=== PATIENT | female | born 1995 | race Caucasian/White ===

== ENCOUNTER → 2024-10-01 15:16 | Outpatient (REF) | payer OTHER, SELFPAY | LOC: PNTC 15:16 | PROVIDERS: ATTENDING PHYSICIAN Obstetrics & Gynecology | DX: O99.210 Obesity complicating pregnancy, unspecified trimester (principal); O34.219 Maternal care for unspecified type scar from previous cesarean delivery | CPT/HCPCS: 76801; 76813 ==

== ENCOUNTER → 2024-10-20 07:55 | Outpatient (REF) | payer OTHER, SELFPAY | LOC: PNTC 07:55 | PROVIDERS: ATTENDING PHYSICIAN Obstetrics & Gynecology | DX: O99.210 Obesity complicating pregnancy, unspecified trimester (principal); O34.219 Maternal care for unspecified type scar from previous cesarean delivery | CPT/HCPCS: 76805 ==

== ENCOUNTER → 2024-11-17 16:17 | Outpatient (REF) | payer OTHER, SELFPAY | LOC: PNTC 16:17 | PROVIDERS: ATTENDING PHYSICIAN Obstetrics & Gynecology | DX: O99.210 Obesity complicating pregnancy, unspecified trimester (principal); O34.219 Maternal care for unspecified type scar from previous cesarean delivery; O43.219 Placenta accreta, unspecified trimester | CPT/HCPCS: 76811 ==

== ENCOUNTER → 2025-01-04 15:48 | Outpatient (REF) | payer OTHER, SELFPAY | LOC: PNTC 15:48 | PROVIDERS: ATTENDING PHYSICIAN Student in an Organized Health Care Education/Training Program | DX: O99.210 Obesity complicating pregnancy, unspecified trimester (principal); O34.211 Maternal care for low transverse scar from previous cesarean delivery; O43.219 Placenta accreta, unspecified trimester | CPT/HCPCS: 76816; 93976 ==

== ENCOUNTER → 2025-01-19 15:35 | Outpatient (REF) | payer OTHER, SELFPAY | LOC: PNTC 15:35 | PROVIDERS: ATTENDING PHYSICIAN Obstetrics & Gynecology | DX: Z36.2 Encounter for other antenatal screening follow-up (principal); Z36.3 Encounter for antenatal screening for malformations | CPT/HCPCS: 76815 ==

== ENCOUNTER → 2025-01-25 13:53 | Outpatient (REF) | payer OTHER, SELFPAY | LOC: PNTC 13:53 | PROVIDERS: ATTENDING PHYSICIAN Obstetrics & Gynecology | DX: O35.GXX0 Maternal care for other (suspected) fetal abnormality and damage, fetal upper extremities anomalies, not applicable or unspecified (principal) | CPT/HCPCS: 76815 ==

== ENCOUNTER 2025-02-13 14:35 | Observation (INO) | payer OTHER, SELFPAY ==
[2025-02-13 14:44] VITALS: BMI 33.7
[2025-02-13 15:39] LABS: Urine Albumin 1+ (Neg - Trace); Urine Bilirubin Negative (Negative); Urine Character Clear (Clear); Urine Color Yellow; Urine Glucose Negative (Negative); Urine Ketone Negative (Negative); Urine Leukocyte 1+ (Negative); Urine Nitrite Negative (Negative); Urine Occult Blood Negative (Negative); Urine Urobilinogen Negative (Neg - 1+)
[2025-02-13 16:07] LABS: Urine Bacteria Few (Negative); Urine Red Blood Cell 0-2 /HPF (0-2); Urine Squamous Cell >30 /LPF (Few)
[2025-02-13 16:30] VITALS: BP 125/59
== END 2025-02-13 16:54 | disposition home or self-care (01) ==
LOC: LDRP 14:35
PROVIDERS: ADMITTING PHYSICIAN Obstetrics & Gynecology
DX: O23.43 Unspecified infection of urinary tract in pregnancy, third trimester (principal); N39.0 Urinary tract infection, site not specified; M54.50 Low back pain, unspecified; R10.9 Unspecified abdominal pain; O99.213 Obesity complicating pregnancy, third trimester; Z3A.32 32 weeks gestation of pregnancy; G89.29 Other chronic pain; R39.15 Urgency of urination
CPT/HCPCS: 81003; 81015; 87086; G0378

== ENCOUNTER → 2025-02-16 16:52 | Outpatient (REF) | payer OTHER, SELFPAY | LOC: PNTC 16:52 | PROVIDERS: ATTENDING PHYSICIAN Obstetrics & Gynecology | DX: O99.210 Obesity complicating pregnancy, unspecified trimester (principal); O34.219 Maternal care for unspecified type scar from previous cesarean delivery | CPT/HCPCS: 76816 ==

== ENCOUNTER 2025-04-07 05:36 | Inpatient (IN) | payer OTHER, SELFPAY ==
[2025-04-07 05:40] VITALS: BMI 35.4
[2025-04-07 06:23] VITALS: BP 114/73
[2025-04-07 06:25] LABS: Hematocrit 34.5 % (37.0-47.0); Hemoglobin 11.6 g/dL (12.0-16.0); Mean Corp Hgb Conc. 33.6 g/dL (33.0-37.0); Mean Corpuscular Hgb 28.4 pg (27.0-31.0); Mean Corpuscular Volume 84.4 fL (81.0-99.0); Mean Platelet Volume 12.2 fL (7.4-10.4); Platelet Count 133 10^3/uL (130-400); Red Blood Cell Count 4.09 10^6/uL (4.20-5.40); Red Cell Dist. Width 14.6 % (11.5-14.5); White Blood Cell Count 11.5 10^3/uL (4.8-10.8)
[2025-04-07] MEDS: BICITRA 30 ML PO (07:11)
[2025-04-07] MEDS: TYLENOL 1000 MG PO (07:11)
[2025-04-07] MEDS: ANCEF 10 IV (07:12)
[2025-04-07] MEDS: TORADOL 15 MG IV ×2 (13:49→19:58)
--- NOTE | 2025-04-07 18:59 | OR.RPT ---
Addendum entered and electronically signed by Penelope Montes DO 04/07/25 19:35:
Procedure date: 04/07/25
Original Note:
Operative Report
Operative Report
Preop diagnosis: IUP @40.1, history of prior C/Sx1, history of hemorrhage with prior C/S
Postop diagnosis: same
Procedure: Repeat low transverse section
Surgeon: Jyoti
Anesthesia: Spinal, Dimas
QBL: 510mL
Findings: Patient given TXA prior to incision for history of hemorrhage, viable male born at 0808, Apgars 8/8, umbilical cord at hysterotomy, normal appearing uterus, bilateral fallopian tubes and ovaries, bladder adherent to lower uterine
segment, adhesions between rectus muscles.
Complications: none
Indications: Patient is a 30yo @40.1 who presents for schedule repeat section. She has a history of one prior section and desired repeat section. She has a history of a hemorrhage requiring a blood transfusion with her last
section. TXA was given prior to incision because of her history. Risks, benefits and alternatives discussed and consents were previously signed in the office.
Procedure: Patient was taken to the operating room where spinal anesthesia was administered and found to be adequate. 2g of Ancef were given for antibiotic prophylaxis. The abdomen was prepped with ChloraPrep. The patient was draped in the normal
sterile fashion. She was placed in the dorsal supine position with a left lateral tilt. A Pfannenstiel incision was made with a 10 blade and carried down to the fascia with a scalpel. Hemostasis achieved with Bovie. The fascia was incised and
dissected laterally with Rebollar scissors. The superior aspect of the fascia was grasped with Caridad clamps. The underlying rectus fascia was sharply dissected with Rebollar scissors. In a similar fashion the inferior aspect of the fascia was elevated with
Caridad clamps and the rectus muscle was dissected off with Rebollar scissors. The rectus muscles were down the midline to the level of the pubic symphysis with manual dissection. The peritoneum was bluntly entered and extended using manual
traction.
Perdomo retractor and bladder blade were placed revealing good visualization of the bladder. The vesicouterine peritoneum was identified. There were vesicouterine adhesions and a bladder flap was developed. A thin lower uterine segment was noted.
The lower uterine segment was incised with a scalpel. Clear amniotic fluid noted at entry. The uterine incision was extended bluntly with lateral and upward traction.
The fetus was in cephalic presentation. The head was elevated out of the pelvis with special attention paid to avoid using the uterine incision as a fulcrum. Gentle fundal pressure was applied once the head was brought to the incision. The head
delivered through the hysterotomy. The rest of the delivered without difficulty. Delayed cord clamping was performed. The was handed off to the uc architect. IV oxytocin was started to facilitate uterine contractions. The placenta was
delivered with fundal massage and gentle downward traction. The uterus was exteriorized. Allis clamps were placed at the apices of the hysterotomy. The inside of the uterus was wiped with a lap sponge to assure complete removal of placental
membranes. Fundal massage was performed and uterus was firm. The uterine incision was closed with 0 Vicryl in a running locked fashion. A horizontal imbricating stitch was done on the hysterotomy with 0 Vicryl. The hysterotomy was inspected and
noted to be hemostatic. The uterus was placed back in the abdomen. Blood clots and fluid were wiped out of the abdomen and pelvis with moist laparotomy sponges. The hysterotomy was examined and was hemostatic.
The rectus muscles were inspected and were hemostatic. The fascial layer was closed in a running continuous fashion using 0 Vicryl. The subcutaneous tissue was copiously irrigated and any small bleeding vessels were cauterized with Bovie cautery.
The subcutaneous tissue was reapproximated in a running continuous fashion with 2-0 Plain in 2 layers. The skin was closed with 4-0 Vicryl in a subcuticular fashion and covered with skin glue. The patient tolerated the procedure well. All sponge and
instrument counts were correct times two. The patient was taken to the recovery room in stable condition. Bain catheter was draining clear urine at the end of the procedure.
[2025-04-08] MEDS: TORADOL 15 MG IV ×2 (01:57→08:45)
[2025-04-08 05:56] LABS: Hematocrit 28.4 % (37.0-47.0); Hemoglobin 9.7 g/dL (12.0-16.0); Mean Corp Hgb Conc. 34.2 g/dL (33.0-37.0); Mean Corpuscular Volume 84.8 fL (81.0-99.0); Mean Platelet Volume 12.1 fL (7.4-10.4); Platelet Count 126 10^3/uL (130-400); Red Blood Cell Count 3.35 10^6/uL (4.20-5.40); Red Cell Dist. Width 14.7 % (11.5-14.5); White Blood Cell Count 12.4 10^3/uL (4.8-10.8)
--- NOTE | 2025-04-08 07:30 | W.PN.ANS.POP ---
Anesthesia Post Operative
- Anesthesia Post Op Note
Vital Signs Stable-See Nursing Note: Yes
Airway Patent: Yes
Adequate Pain Control: Yes
Change in Mental Status: No
Current Postoperative Nausea & Vomiting: No
Anesthesia Complications: No
General Anesthetic Recall: No
Unplanned Admission: No
Post Op Hydration Adequate: Yes
[2025-04-08] MEDS: SENOKOT-S 1 TABLET PO (08:45)
[2025-04-08] MEDS: PRENATAL PLUS 1 TABLET PO (08:45)
[2025-04-08] MEDS: FEOSOL 325 MG PO (09:34)
[2025-04-08] MEDS: TYLENOL 650 MG PO ×2 (13:18→16:54)
[2025-04-08] MEDS: MOTRIN 600 MG PO ×2 (16:54→23:16)
[2025-04-08] MEDS: PERCOCET 5/325 1 TABLET PO (23:16)
[2025-04-09] MEDS: MOTRIN 600 MG PO ×3 (05:35→20:14)
[2025-04-09] MEDS: PERCOCET 5/325 1 TABLET PO ×3 (05:35→20:14)
[2025-04-09] MEDS: SENOKOT-S 1 TABLET PO (07:41)
[2025-04-09] MEDS: FEOSOL 325 MG PO (07:41)
[2025-04-09] MEDS: PRENATAL PLUS 1 TABLET PO (07:41)
[2025-04-09 14:23] LABS: Syphilis/T. pallidum Ab Reflex Negative (Negative)
--- NOTE | 2025-04-09 15:26 | CM ---
Mom and Baby seen in room on [facility]. Mom reviewed her concern that physician had not been able to place order for her spectra pump due to insurance fax issues. CM completed script and faxed to [employer] at [phone], emailed form marked secure to
[email or web address] as well as placed a copy of the script on the chart with nursing. Mom indicated that she did not want to have a copy of the form to text to [employer] and wanted the staff to handle her request. CM will continue to follow for
discharge planning needs.
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
[2025-04-09] MEDS: TYLENOL 650 MG PO (15:49)
[2025-04-10] MEDS: PERCOCET 5/325 1 TABLET PO (02:34)
[2025-04-10] MEDS: MOTRIN 600 MG PO ×2 (02:34→08:25)
[2025-04-10] MEDS: PRENATAL PLUS 1 TABLET PO (08:21)
[2025-04-10] MEDS: FEOSOL 325 MG PO (08:21)
--- NOTE | 2025-04-10 09:46 | W.DS.TRANS ---
DC Summary - [facility]
-
Discharge Instructions:
Discharge Diagnosis/Procedures rcs
Instructions:
Stand-Alone Forms: [facility] Delivery
Changes to Home Medications: No
Discharge Medications:
DC Medications w/original date entered in [facility]
vitamin-ferrous fumarate 28 mg iron-folic acid 800 mcg tablet ( Tablet) 1 tab PO DAILY 02/13/25
ibuprofen 600 mg tablet 600 mg PO Q6HPRN PRN cramps #90 tabs 04/10/25
oxycodone-acetaminophen 5 mg-325 mg tablet 1 tab PO Q4HPRN PRN moderate pain #5 tabs 04/10/25
Home Medication Changes
Pending Results: No
Total time spent discharging patient (in min): 15
== END 2025-04-10 12:05 | disposition home or self-care (01) | DRG 788 ==
LOC: LDRP 05:36
PROVIDERS: Student in an Organized Health Care Education/Training Program; ADMITTING PHYSICIAN Obstetrics & Gynecology
PROC: 10D00Z1 Extraction of Products of Conception, Low, Open Approach (ICD-10-PCS; 2025-04-07)
DX: O34.211 Maternal care for low transverse scar from previous cesarean delivery (principal); N85.8 Other specified noninflammatory disorders of uterus; O48.0 Post-term pregnancy; Z3A.40 40 weeks gestation of pregnancy; Z37.0 Single live birth; O99.824 Streptococcus B carrier state complicating childbirth
CPT/HCPCS: 85027; 86780; 86850; 86900; 86901